=== PATIENT | female | born 1955 | race Caucasian/White ===

== ENCOUNTER → 2016-11-15 | Outpatient (CLI) | payer OTHER ==
[~2016-11-15] MED LIST: IOPAMIDOL (ISOVUE-300) 100 ML BTL IV ONE
== END ==
LOC: FIMAGING 10:02
PROVIDERS: ATTEND Family Medicine
DX: I77.810 Thoracic aortic ectasia (principal); I25.10 Atherosclerotic heart disease of native coronary artery without angina pectoris; K44.9 Diaphragmatic hernia without obstruction or gangrene; R91.8 Other nonspecific abnormal finding of lung field; F17.200 Nicotine dependence, unspecified, uncomplicated
CPT/HCPCS: Q9967

== ENCOUNTER → 2017-04-12 | Outpatient (CLI) | payer OTHER | LOC: FIMAGING 15:35 | DX: I82.502 Chronic embolism and thrombosis of unspecified deep veins of left lower extremity (principal) ==

== ENCOUNTER 2017-07-08 21:51 | Emergency (ER) | payer OTHER ==
[2017-07-08] MEDS ORDERED: IPRATROPIUM/ALBUTEROL 3 ML DEYVIAL IH ONE ×2 (22:07)
--- NOTE | 2017-07-08 22:17 | EDPHY ---
H & P Source: Patient, EMS Exam Limitations: Intoxication - Medical/Surgical History Hx Asthma: No Hx Chronic Respiratory Disease: No Hx Diabetes: No Hx Cardiac Disease: No Hx Renal Disease: No Hx Cirrhosis: No Hx Alcoholism: Yes Hx HIV/AIDS: No Hx Splenectomy or Spleen Trauma: No Other PMH: htn low thyroid,depression, - Social History Smoking Status: Current every day smoker Time Seen by Provider: 07/08/17 21:59 HPI/ROS: HPI The patient presents brought in by ambulance on a mental health hold for suicidal ideation. Apparently, she had drink 1 L of should not ups earlier in the evening. Her partner tried to take this away from her and she became upset. She then held a knife to her neck and said that she was going to kill herself. She now denies any suicidality and says this was actually fleeting. She does have a history of prior psychiatric hospitalizations. She denies any complaints current later though says she is feeling intoxicated. REVIEW OF SYSTEMS Constitutional: No fever, no chills. Eyes: No discharge. ENT: No sore throat. Cardiovascular: No chest pain, no palpitations. Respiratory: No cough, no shortness of breath. Gastrointestinal: No abdominal pain, no vomiting. Genitourinary: No hematuria. Musculoskeletal: No back pain. Skin: No rashes. Neurological: No headache. PMHx: COPD, not on any home oxygen, occasionally uses inhalers, history of DVT on Eliquis, currenly not on any anticoagulants except for a baby aspirin Soc Hx: Housed, alcohol use PHYSICAL General Appearance: Alert, no distress Eyes: Pupils equal and round no pallor or injection ENT, Mouth: Mucous membranes moist Respiratory: There are no retractions, lungs are clear to auscultation Cardiovascular: Regular rate and rhythm Gastrointestinal: Abdomen is soft and non-tender, no masses, bowel sounds normal Neurological: A&O, moves all extremities Skin: Warm and dry, no rashes Musculoskeletal: Neck is supple non tender Extremities: symmetrical, full range of motion Psychiatric: Patient is oriented X 3, there is no agitation (Riguzzi,Myrna) Constitutional: Initial Vital Signs Temperature (C) 36.6 C 07/08/17 22:45 Heart Rate 88 07/08/17 22:45 Respiratory Rate 16 07/08/17 22:45 Blood Pressure 126/93 H 07/08/17 22:45 O2 Sat (%) 77 L 07/08/17 22:45 O2 Delivery Mode Room Air O2 (L/minute) 2 Allergies/Adverse Reactions: No Known Allergies Allergy (Unverified 12/29/09 17:18) Home Medications: Medication Instructions Recorded Lisinopril 12/29/09 SYNTHROID 12/29/09 traZODone 07/20/16 Aspirin 07/08/17 Ativan 07/08/17 Ondansetron 07/08/17 Nitrofurantoin Macrobid [Macrobid] 100 mg PO BID #14 cap 07/09/17 Medical Decision Making ED Course/Re-evaluation: Re-evaluation by me at 7:03 a.m.. Patient is stable. She is resting comfortably without complaints. She is awaiting evaluation for suicide ideation 2:50 p.m.. Patient has been evaluated by mental health and felt to be appropriate for outpatient management. Now that she is sober the patient is no longer suicidal. has been contacted and will come to pick the patient up. (Vivek Chappell) Differential Diagnosis: 62-year-old female, brought in by ambulance, with past medical history of COPD, DVT, psychiatric admissions presents on an M1 hold for suicidality. This was in the setting of alcohol intoxication and she does still seem quite intoxicated. She now says that she is no longer feeling suicidal. On exam, she is notably hypoxic, she does have a history of COPD, lungs sound clear. Plan for basic laboratory testing including alcohol level and urine toxicology. I will add chest x-ray onto her evaluation given her hypoxia. We will do a trial of a DuoNeb to see if this improves her symptoms. The patient continued to be slightly hypoxic requiring supplemental oxygen in the emergency department. Because of this D-dimer was sent and was negative. I feel her hypoxia is likely related to underlying COPD. She is completely asymptomatic, thus I doubt any occult pneumonia or other serious pathology. Labs were checked and did reveal urinary tract infection, I have given her dose of Macrobid for this. She was monitored in the emergency department, repeat breathalyzer was 0.09. The mental health team will evaluate her. At approximately 7:00 a.m. the case was signed out to the oncoming provider Dr. Chappell pending psychiatric assessment. 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 Maker Medications Given: Discontinued Medications Acetaminophen (Tylenol) 650 mg PO EDNOW ONE Stop: 07/09/17 09:27 Last Admin: 07/09/17 09:28 Dose: Not Given Acetaminophen (Tylenol) 650 mg PO EDNOW ONE Stop: 07/09/17 09:29 Last Admin: 07/09/17 09:32 Dose: 650 mg Albuterol/Ipratropium (Duoneb) 3 ml IH EDNOW ONE Stop: 07/08/17 22:08 Last Admin: 07/08/17 22:27 Dose: 3 ml Famotidine (Pepcid) 20 mg PO EDNOW ONE Stop: 07/09/17 09:27 Last Admin: 07/09/17 09:33 Dose: 20 mg Nitrofurantoin Macrocrystals (Macrobid) 100 mg PO EDNOW ONE PRN Reason: Protocol Stop: 07/09/17 02:26 Last Admin: 07/09/17 02:33 Dose: 100 mg Departure - Departure Disposition: Home, Routine, Self-Care Clinical Impression: UTI (urinary tract infection) Alcoholic intoxication Qualifiers: Complication of substance-induced condition: with delirium Qualified Code(s): F10.921 - Alcohol use, unspecified with intoxication delirium COPD (chronic obstructive pulmonary disease) Qualifiers: COPD type: chronic bronchitis Chronic bronchitis type: unspecified Qualified Code(s): J42 - Unspecified chronic bronchitis Condition: Good Instructions: Alcohol Intoxication (ED) Additional Instructions: Please return to the emergency room if your feeling worse or unsafe in any way. Drink plenty of fluids and stay hydrated to help treat a urinary tract infection. We are giving you a prescription for antibiotics. Return for flank pain, fever, vomiting Follow up with treatment plan as outlined by mental health. Please drink alcohol responsibly. Referrals: [facility],. [Clinic] - As per Instructions Prescriptions: Nitrofurantoin Macrobid [Macrobid] 100 mg PO BID #14 cap
[2017-07-08 23:21] LABS: PLATELET COUNT 138 10^3/uL (150-400)
[2017-07-09] MEDS ORDERED: NITROFURANTOIN MACROBID 100 MG CAP PO ONE ×2 (02:25)
[2017-07-09 08:04] VITALS: RESP 16
[2017-07-09] MEDS ORDERED: FAMOTIDINE 20 MG TAB PO ONE ×2 (09:26)
[2017-07-09] MEDS ORDERED: ACETAMINOPHEN 500 MG TAB PO ONE ×2 (09:26)
[2017-07-09] MEDS ORDERED: ACETAMINOPHEN 325 MG TAB PO ONE ×2 (09:28)
[2017-07-09 14:59] VITALS: BP 166/78; PULSE 91; TEMP 98.1; O2SAT 90
== END 2017-07-09 15:22 | disposition home or self-care (01) ==
LOC: EDUNIT#
DX: F10.921 Alcohol use, unspecified with intoxication delirium (principal); J42 Unspecified chronic bronchitis; N39.0 Urinary tract infection, site not specified; F17.200 Nicotine dependence, unspecified, uncomplicated; I10 Essential (primary) hypertension; B96.20 Unspecified Escherichia coli [E. coli] as the cause of diseases classified elsewhere; Z79.82 Long term (current) use of aspirin
CPT/HCPCS: 80305; G0480

== ENCOUNTER 2018-04-24 | Emergency (ER) | payer OTHER | END 2018-04-24 23:08 | disposition home or self-care (01) | PROC: 09QKXZZ Repair Nasal Mucosa and Soft Tissue, External Approach (ICD-10-PCS; principal; 2018-04-24) ==

== ENCOUNTER 2018-07-10 09:38 | Inpatient (IN) | payer OTHER ==
[2018-07-10] MEDS ORDERED: methylPREDNISolone SOD SUCC 125 MG/2 ML VIAL IVP ONE (09:59)
[2018-07-10] MEDS ORDERED: IPRATROPIUM/ALBUTEROL 3 ML DEYVIAL IH ONE (09:59)
[2018-07-10] MEDS ORDERED: NS 1,000 ML IV ONE ×2 (09:59→10:32)
[2018-07-10] MEDS ORDERED: ONDANSETRON 4 MG/2 ML VIAL IVP ONE (10:01)
--- NOTE | 2018-07-10 10:05 | EDPHY ---
H & P Stated Complaint: cough/hypoxia x 5 days Time Seen by Provider: 07/10/18 09:50 HPI/ROS: CHIEF COMPLAINT: Cough, shortness of breath HISTORY OF PRESENT ILLNESS: 63-year-old female with COPD presents with cough and shortness of breath. Onset of a moist cough 4 days ago. Gradually increasing cough, productive of yellowish phlegm, associated with gradually increasing shortness of breath and vomiting. Difficulty walking up a flight of stairs d/t SOB. Unable to tolerate food in the past 2 days. Feels dizzy with standing. No fever. Ran out of her inhalers a few days ago. REVIEW OF SYSTEMS: complete 10 point ROS reviewed and is negative except for the noted elements in the HPI Source: Patient - Personal History Current Tetanus Diphtheria and Acellular Pertussis (TDAP): Yes - Medical/Surgical History Hx Asthma: No Hx Chronic Respiratory Disease: No Hx Diabetes: No Hx Cardiac Disease: No Hx Renal Disease: No Hx Cirrhosis: No Hx Alcoholism: Yes Hx HIV/AIDS: No Hx Splenectomy or Spleen Trauma: No Other PMH: htn, pneumonia, COPD, hypothyroidism,depression, - Social History Smoking Status: Current every day smoker Alcohol Use: Heavy Additional Social History: - Physical Exam Exam: General Appearance: Alert, pleasant Eyes: Pupils equal and round, no conjunctival pallor or injection ENT, Mouth: Mucous membranes slightly dry Neck: Normal inspection Respiratory: Normal respiratory rate, diffuse expiratory wheezing Cardiovascular: Regular rate and rhythm Gastrointestinal: Abdomen is soft and nontender Neurological: A&O, nonfocal exam Skin: Warm and dry, no rash Extremities: Nontender, no pedal edema Psychiatric: Mood and affect normal Constitutional: Initial Vital Signs Temperature (C) 36.6 C 07/10/18 09:40 Heart Rate 105 H 07/10/18 09:40 Respiratory Rate 22 H 07/10/18 09:40 Blood Pressure 138/81 H 07/10/18 09:40 O2 Sat (%) 97 07/10/18 09:40 O2 Delivery Mode Room Air O2 (L/minute) 2 Allergies/Adverse Reactions: No Known Allergies Allergy (Verified 07/10/18 09:39) Home Medications: Medication Instructions Recorded Levothyroxine [Synthroid 150 mcg 150 mcg PO DAILY06 12/29/09 (*)] Lisinopril [Zestril 20 mg (*)] 20 mg PO DAILY 12/29/09 traZODone [traZODONE 50MG (*)] 50 mg PO HS PRN 07/20/16 LORazepam [Ativan (*)] 0.5 mg PO DAILY PRN 07/08/17 Acetaminophen [Tylenol 325mg (*)] 325 mg PO Q6HRS PRN 07/10/18 Carboxymethylcellulose 1% [Refresh 1 drop EACHEYE DAILY PRN 07/10/18 Celluvisc (*)] Medical Decision Making - Diagnostics Imaging Results: Imaging Impressions Chest X-Ray 07/10/18 09:51 Impression: Possible air trapping. No pneumonia. Imaging: I viewed and interpreted images myself ED Course/Re-evaluation: This patient presents with cough and shortness of breath. Exam reveals hypoxia and bronchospasm. O2 2l NC applied, DuoNeb and Solu-Medrol 125 mg IV given. IV normal saline 1 L and Zofran 4 mg IV given for dehydration. Initial lactate is 3. Patient meets the criteria for severe sepsis. BP normal. IV fluids per the sepsis protocol initiated. Repeat lactate is 2.7. Chest x-ray is unremarkable. After the DuoNeb, oxygen saturation remains 88% on room air. Lungs have decreased wheezing, but still present. Good air exchange. Will treat this patient for presumed pneumonia with IV Levaquin per the severe sepsis protocol, given that she has COPD and is a heavy alcohol drinker. The hospitalist service was consulted for admission. Differential Diagnosis: includes though not limited to PE, pulm edema, acute bronchitis, PTX, empyema - Data Points Laboratory Results: Laboratory Results 07/10/18 10:17 07/10/18 10:17 07/10/18 07/10/18 07/10/18 11:02 10:17 10:17 WBC RBC Hgb Hct MCV MCH MCHC RDW Plt Count MPV Neut % (Auto) Lymph % (Auto) Luce % (Auto) Eos % (Auto) Baso % (Auto) Nucleat RBC Rel Count Absolute Neuts (auto) Absolute Lymphs (auto) Absolute Monos (auto) Absolute Eos (auto) Absolute Basos (auto) Absolute Nucleated RBC Immature Gran % Immature Gran # VBG Lactic Acid 2.7 mmol/L H mmol/L 3.0 mmol/L H mmol/L (0.7-2.1) (0.7-2.1) Sodium 131 mEq/L L mEq/L (135-145) Potassium 4.5 mEq/L mEq/L (3.3-5.0) Chloride 97 mEq/L mEq/L (97-110) Carbon Dioxide 23 mEq/l mEq/l (22-31) Anion Gap 11 mEq/L mEq/L (6-14) BUN 5 mg/dL L mg/dL (7-23) Creatinine 0.7 mg/dL mg/dL (0.6-1.0) Estimated GFR > 60 Glucose 101 mg/dL H mg/dL (70-100) Calcium 8.6 mg/dL mg/dL (8.5-10.4) 07/10/18 10:17 WBC 3.52 10^3/uL L 10^3/uL (3.80-9.50) RBC 4.30 10^6/uL 10^6/uL (4.18-5.33) Hgb 13.8 g/dL g/dL (12.6-16.3) Hct 40.0 % % (38.0-47.0) MCV 93.0 fL fL (81.5-99.8) MCH 32.1 pg pg (27.9-34.1) MCHC 34.5 g/dL g/dL (32.4-36.7) RDW 13.2 % % (11.5-15.2) Plt Count 100 10^3/uL L 10^3/uL (150-400) MPV 10.5 fL fL (8.7-11.7) Neut % (Auto) 69.5 % % (39.3-74.2) Lymph % (Auto) 19.3 % % (15.0-45.0) Luce % (Auto) 9.4 % % (4.5-13.0) Eos % (Auto) 0.6 % % (0.6-7.6) Baso % (Auto) 0.9 % % (0.3-1.7) Nucleat RBC Rel Count 0.0 % % (0.0-0.2) Absolute Neuts (auto) 2.45 10^3/uL 10^3/uL (1.70-6.50) Absolute Lymphs (auto) 0.68 10^3/uL L 10^3/uL (1.00-3.00) Absolute Monos (auto) 0.33 10^3/uL 10^3/uL (0.30-0.80) Absolute Eos (auto) 0.02 10^3/uL L 10^3/uL (0.03-0.40) Absolute Basos (auto) 0.03 10^3/uL 10^3/uL (0.02-0.10) Absolute Nucleated RBC 0.00 10^3/uL 10^3/uL (0-0.01) Immature Gran % 0.3 % % (0.0-1.1) Immature Gran # 0.01 10^3/uL 10^3/uL (0.00-0.10) VBG Lactic Acid Sodium Potassium Chloride Carbon Dioxide Anion Gap BUN Creatinine Estimated GFR Glucose Calcium Microbiology Results: MICROBIOLOGY 07/10/18 10:43 Nasal, Sinus - Swab Respiratory Panel (PCR) - Final No Organism Detected Medications Given: Albuterol/Ipratropium (Duoneb) 3 ml IH Q6HRS PRN PRN Reason: Short of Breath/Dyspnea Stop: 01/06/19 14:11 Last Admin: 07/10/18 16:05 Dose: 3 ml Azithromycin (Zithromax) 500 mg PO DAILY DIDI PRN Reason: Protocol Stop: 08/09/18 14:14 Last Admin: 07/10/18 15:16 Dose: 500 mg Chlordiazepoxide HCl (Librium) 10 mg PO TID [facility] Stop: 01/06/19 15:59 Last Admin: 07/10/18 15:17 Dose: 10 mg Nystatin (Mycostatin Oral Liquid) 500,000 unit PO QID DIDI PRN Reason: Protocol Stop: 08/09/18 15:59 Last Admin: 07/10/18 15:17 Dose: 500,000 unit Prednisone (Prednisone) 40 mg PO DAILY [facility] Stop: 07/15/18 14:14 Last Admin: 07/10/18 15:16 Dose: 40 mg Discontinued Medications Albuterol/Ipratropium (Duoneb) 3 ml IH EDNOW ONE Stop: 07/10/18 10:00 Last Admin: 07/10/18 10:42 Dose: 3 ml Sodium Chloride (Ns) 1,000 mls @ 0 mls/hr IV ONCE ONE; Wide Open PRN Reason: Protocol Stop: 07/10/18 10:00 Last Admin: 07/10/18 10:26 Dose: 1,000 mls Sodium Chloride (Ns) 1,000 mls @ 0 mls/hr IV ONCE ONE; Wide Open PRN Reason: Protocol Stop: 07/10/18 10:33 Last Admin: 07/10/18 10:55 Dose: 1,000 mls Levofloxacin/Dextrose (Levaquin 750 Mg (Premix)) 150 mls @ 100 mls/hr IV EDNOW ONE PRN Reason: Protocol Stop: 07/10/18 12:37 Last Admin: 07/10/18 11:20 Dose: 150 mls Sodium Chloride (Ns) 1,800 mls @ 3,600 mls/hr 30 ml/kg infuse over 30 min ( 1800 ml) IV EDNOW ONE PRN Reason: Protocol Stop: 07/10/18 11:37 Last Admin: 07/10/18 11:29 Dose: Not Given Methylprednisolone Sodium Succinate (Solu-Medrol) 125 mg IVP EDNOW ONE Stop: 07/10/18 10:00 Last Admin: 07/10/18 10:27 Dose: 125 mg Ondansetron HCl (Zofran) 4 mg IVP EDNOW ONE Stop: 07/10/18 10:02 Last Admin: 07/10/18 10:26 Dose: 4 mg Departure - Departure Disposition: [facility] Clinical Impression: Chronic obstructive pulmonary disease with acute exacerbation Pneumonia Qualifiers: Pneumonia type: due to unspecified organism Laterality: unspecified laterality Lung location: unspecified part of lung Qualified Code(s): J18.9 - Pneumonia, unspecified organism Condition: Fair
[2018-07-10 10:40] LABS: PLATELET COUNT 100 10^3/uL (150-400)
[2018-07-10] MEDS ORDERED: NS 1,800 ML IV ONE (11:08)
[2018-07-10] MEDS ORDERED: ONDANSETRON DISINTEGRATING 4 MG TAB PO PRN (12:20)
[2018-07-10] MEDS ORDERED: ONDANSETRON 4 MG/2 ML VIAL IVP PRN (12:20)
[2018-07-10] MEDS ORDERED: oxyCODONE IR 5 MG TAB PO PRN (14:12)
[2018-07-10] MEDS ORDERED: IPRATROPIUM/ALBUTEROL 3 ML DEYVIAL IH PRN (14:12)
--- NOTE | 2018-07-10 14:18 | HOSPPROG ---
Hospitalist Progress Note Assessment/Plan: 63 yo F w copd here w exacerbation. meets criteria for severe sepsis, but elevated lactate likely explained by poor hepatic clearance as opposed to tissue hypoperfusion 1. steroids, nebs, azithro 2. scheduled librium 3. exoressed us from pustule on cheek. follow 4. patient sen examined discussed w ADAL reyes. agree w plan as outlined Objective: Vital Signs Temp Pulse Resp BP Pulse Ox 36.6 C 98 18 129/81 H 93 07/10/18 13:15 07/10/18 13:15 07/10/18 13:15 07/10/18 13:15 07/10/18 13:15 ICD10 Worksheet Patient Problems: Problems Problem Status Onset Pneumonia Acute
[2018-07-10] MEDS ORDERED: LORazepam 0.5 MG TAB PO PRN (14:28)
[2018-07-10] MEDS ORDERED: traZODone 50 MG TAB PO PRN (14:28)
[2018-07-10] MEDS ORDERED: CARBOXYMETHYLCELLULOSE 1% 0.4 ML DROPERETTE EACHEYE PRN (14:28)
--- NOTE | 2018-07-10 14:28 | PDGENHP ---
History and Physical - Chief Complaint Cough - History of Present Illness 63 y/o female with history significant for COPD, 22-pack year, and alcohol use disorder presents with a 5-day productive cough and chest congestion. Reports clear to yellow phlegm. Has shortness of breath with exertion, especially using stairs. Endorses chills. Denies chest pains, nausea, fevers. Past Medical History/Surgical History: 1. Hypertension 2. Hypothyroidism 3. COPD 4. Alcohol use disorder (12 beers/day) 5. Anxiety 6. Colitis 7. DVT (LLE) History Information - Allergies/Home Medication List Allergies/Adverse Reactions: No Known Allergies Allergy (Verified 07/10/18 09:39) Home Medications: Levothyroxine [Synthroid 150 mcg (*)] 150 mcg PO DAILY06 12/29/09 [Last Taken ] Lisinopril [Zestril 20 mg (*)] 20 mg PO DAILY 12/29/09 [Last Taken 07/09/18] traZODone [traZODONE 50MG (*)] 50 mg PO HS PRN 07/20/16 [Last Taken 07/09/18] LORazepam [Ativan (*)] 0.5 mg PO DAILY PRN 07/08/17 [Last Taken 07/10/18] Acetaminophen [Tylenol 325mg (*)] 325 mg PO Q6HRS PRN 07/10/18 [Last Taken 07/09 21:00] Carboxymethylcellulose 1% [Refresh Celluvisc (*)] 1 drop EACHEYE DAILY PRN 07/10 [Last Taken Unknown] I have personally reviewed and updated: family history, medical history, social history, surgical history Past Medical History: See history in HPI - Surgical History Reports: no pertinent surgical hx - Family History Positive for: cancer, hypertension - Social History Smoking Status: Current every day smoker Tobacco Use: Cigarettes (1/2 pack/day) Alcohol Use: Heavy (12 beers/day) Drug Use: None Additional social history: , Myles, at bedside with pt Review of Systems Review of Systems: ROS: 10pt was reviewed & negative except for what was stated in HPI & below Constitutional: Reports: chills, recent illness EENMT: Reports: sore throat (Feels hoarse) Cardiac: Reports: no symptoms Respiratory: Reports: cough, shortness of breath Gastrointestinal: Reports: no symptoms Genitourinary: Reports: no symptoms Muscolosketal: Reports: no symptoms Skin: Reports: lesions (right buccal abscess) Neurological: Reports: anxiety, headache Hematologic/Lymphatic: Reports: no symptoms Immunologic/Allergy: Reports: no symptoms Physical Exam Physical Exam: Lab data and imaging reviewed WBC: 3.52 Plt: 100 Lactic Acid: 3.0, 2.7 Na: 131 Blood culture pending Respiratory panel pending CXR: No pneumonia. Possible air trapping. Temp Pulse Resp BP Pulse Ox 36.6 C 98 18 129/81 H 93 07/10/18 13:15 07/10/18 13:15 07/10/18 13:15 07/10/18 13:15 07/10/18 13:15 O2 (L/minute) 2 Constitutional: no apparent distress, appears nourished, not in pain Eyes: PERRL, anicteric sclera, EOMI Ears, Nose, Mouth, Throat: hearing normal, ears appear normal, oral thrush Cardiovascular: regular rate and rhythym, no murmur, rub, or gallop, No edema Peripheral Pulses: 2+: dorsalis-pedis (R) (Radial 2+), dorsalis-pedis (L) ( Radial 2+ ) Respiratory: reduced air movement (Bilateral upper lobes) Gastrointestinal: normoactive bowel sounds, soft, non-tender abdomen, no palpable masses Genitourinary: no bladder fullness, no bladder tenderness Skin: erythema, fluctuance, other (Right facial abscess; purulent drainage) Musculoskeletal: full muscle strength, no muscle tenderness, normal joint ROM, no joint effusions Neurologic: AAOx3, sensation intact bilaterally, CN II-XII Intact Psychiatric: interacting appropriately, not anxious, not encephalopathic, thought process linear Lymph, Heme, Immunologic: no cervical LAD, no supraclavicular LAD Lab Data & Imaging Review 07/10/18 10:17 07/10/18 10:17 WBC 3.52 10^3/uL (3.80-9.50) L 07/10/18 10:17 RBC 4.30 10^6/uL (4.18-5.33) 07/10/18 10:17 Hgb 13.8 g/dL (12.6-16.3) 07/10/18 10:17 Hct 40.0 % (38.0-47.0) 07/10/18 10:17 MCV 93.0 fL (81.5-99.8) 07/10/18 10:17 MCH 32.1 pg (27.9-34.1) 07/10/18 10:17 MCHC 34.5 g/dL (32.4-36.7) 07/10/18 10:17 RDW 13.2 % (11.5-15.2) 07/10/18 10:17 Plt Count 100 10^3/uL (150-400) L 07/10/18 10:17 MPV 10.5 fL (8.7-11.7) 07/10/18 10:17 Neut % (Auto) 69.5 % (39.3-74.2) 07/10/18 10:17 Lymph % (Auto) 19.3 % (15.0-45.0) 07/10/18 10:17 Drew % (Auto) 9.4 % (4.5-13.0) 07/10/18 10:17 Eos % (Auto) 0.6 % (0.6-7.6) 07/10/18 10:17 Baso % (Auto) 0.9 % (0.3-1.7) 07/10/18 10:17 Nucleat RBC Rel Count 0.0 % (0.0-0.2) 07/10/18 10:17 Absolute Neuts (auto) 2.45 10^3/uL (1.70-6.50) 07/10/18 10:17 Absolute Lymphs (auto) 0.68 10^3/uL (1.00-3.00) L 07/10/18 10:17 Absolute Monos (auto) 0.33 10^3/uL (0.30-0.80) 07/10/18 10:17 Absolute Eos (auto) 0.02 10^3/uL (0.03-0.40) L 07/10/18 10:17 Absolute Basos (auto) 0.03 10^3/uL (0.02-0.10) 07/10/18 10:17 Absolute Nucleated RBC 0.00 10^3/uL (0-0.01) 07/10/18 10:17 Immature Gran % 0.3 % (0.0-1.1) 07/10/18 10:17 Immature Gran # 0.01 10^3/uL (0.00-0.10) 07/10/18 10:17 VBG Lactic Acid 2.7 mmol/L (0.7-2.1) H 07/10/18 11:02 Sodium 131 mEq/L (135-145) L 07/10/18 10:17 Potassium 4.5 mEq/L (3.3-5.0) 07/10/18 10:17 Chloride 97 mEq/L (97-110) 07/10/18 10:17 Carbon Dioxide 23 mEq/l (22-31) 07/10/18 10:17 Anion Gap 11 mEq/L (6-14) 07/10/18 10:17 BUN 5 mg/dL (7-23) L 07/10/18 10:17 Creatinine 0.7 mg/dL (0.6-1.0) 07/10/18 10:17 Estimated GFR > 60 07/10/18 10:17 Glucose 101 mg/dL (70-100) H 07/10/18 10:17 Calcium 8.6 mg/dL (8.5-10.4) 07/10/18 10:17 Visualized and Interpreted Chest x-ray results: Yes Chest X-Ray results: no infiltrate, other (Possible air trapping) Assessment & Plan Assessment: 63 y/o female with history significant for COPD, 22-pack year, and alcohol use disorder presents with 5-day productive cough, possible URI or acute exacerbation of COPD. Plan: 1. URI versus COPD exacerbation -Azithromycin PO -Prednisone PO -Duo-nebs -Pulmonary hygiene -Room air challenge tomorrow morning 2. Severe Sepsis: the patient meets at least two criteria of severe sepsis ( tachy, elevated lactate levels, leukocytopenia). However, she is hemodynamically stable with blood pressure last reading being 126/74 and not hypotensive. I do not consider her to be severe septic. 3. Facial Abscess: right side buccal showed a moderate, fluctuance abscess. Purulent drainage. Oral thrush. -Treat subsequent pain -Continue to monitor; if febrile, increase in pain, erythemic - will consider PO antibiotics -Treat thrush with Nystatin, swish and swallow 4. Alcohol use disorder: pt is open to counseling and steps for alcohol cessation -CIWA scale -Librium TID -Behavioral health - cessation information 5, 6, 7. Hypothyroidism, HTN, Anxiety: Continue to monitor and continue use of home medications Diet: Regular Code: Full VTE ppx: SCDs Dispo: Admit to inpatient
[2018-07-10] MEDS: AZITHROMYCIN 250 MG TAB PO SCH (15:16)
[2018-07-10] MEDS: predniSONE 20 MG TAB PO SCH (15:16)
[2018-07-10] MEDS: NYSTATIN SUSP 500000 UNIT/5 ML UD LIQ PO SCH ×2 (15:17→21:27)
--- NOTE | 2018-07-10 15:22 | PDMN ---
Medical Necessity Medical necessity: MCG: M100 COPD A-2 days: COPD exacerbation RA sats 88% 93 % on 2 L., productive cough, chest congestion, SOB with exertion, chills, X 5 days, sepsis with tachycardia, elevated lactate , leukocytopenia, PMHx 22 pack year smoker, ETOH abuse 12 beers/day, HTN, hypothyroidism, COPD, anxiety, colitis, dvt. anticipate > 2 MN ongoing med nec care, eval and further tx.
[2018-07-10] MEDS: ZOLPIDEM TARTRATE 5 MG TAB PO PRN (21:27)
[2018-07-10] MEDS: ACETAMINOPHEN 325 MG TAB PO PRN (21:29)
[2018-07-11] MEDS: ZOLPIDEM TARTRATE 5 MG TAB PO PRN (00:15)
[2018-07-11] MEDS: NYSTATIN SUSP 500000 UNIT/5 ML UD LIQ PO SCH ×3 (05:35→17:31)
[2018-07-11] MEDS: ACETAMINOPHEN 325 MG TAB PO PRN (05:45)
[2018-07-11] MEDS ORDERED: LEVOTHYROXINE 150 MCG TAB PO SCH (06:00)
[2018-07-11] MEDS: predniSONE 20 MG TAB PO SCH (08:53)
[2018-07-11] MEDS ORDERED: LISINOPRIL 20 MG TAB PO SCH (09:00)
[2018-07-11] MEDS ORDERED: AZITHROMYCIN 250 MG TAB PO SCH ×3 (09:45→10:00)
[2018-07-11] MEDS: AZITHROMYCIN 250 MG TAB PO SCH (11:03)
--- NOTE | 2018-07-11 11:04 | ASMTCMCOM ---
CM Note CM Note Notes: Pt is a 63 y/o female admitted for pneumonia and copd exacerbation. Pt has a hx of anxiety and etoh use. CM met w/ pt and alonso for dispo planning. The longest pt has been sober was 20 years and 10 years. Pt reports that journaling and keeping busy helps her stay sober. Pt plans on getting sober again. Pt reports that she has been to treatment in the past. CM provided pt w/ educational material for anxiety. CAGE completed. No needs anticipated at this time. CM available for d/c needs. Plan: Independent Date Signed: 07/11/2018 11:03 AM Electronically Signed By:ROSA Fuentes
--- NOTE | 2018-07-11 11:04 | ASMTCAGE ---
CAGE Do you feel you ought to Answers: Yes cut down on your drinking or drug use? Do people annoy you by Answers: Yes criticizing your drinking or drug use? Do you feel guilty about Answers: Yes your drinking or drug use? Do you drink or use drugs Answers: Yes first thing in the morning (Eye Bender Machine)? Date Signed: 07/11/2018 11:03 AM Electronically Signed By:ROSA Fuentes
--- NOTE | 2018-07-11 14:21 | HOSPPROG ---
Hospitalist Progress Note Assessment/Plan: 63 y/o female with extensive smoking history and suspected COPD, etoh abuse here with mild copd exacerbation. #AECOPD, mild - PO pred, azithromycin, duonebs PRN - Ambulate to determine if needs home O2 #Elevated lactate: No significant drop in bicarb but this could be chronic from resp issues. - Suspect poor hepatic clearance/etoh, not consistent with hypoperfusion/ related to resp distress - Not improving much but down-trending #EtOH use disorder - On librium TID, plan to dc on taper as she is interested in quitting and has h/o withdrawal #Facial pustule - Pus expressed, no indication for antibiotics at present #Hypothyroid: home meds #HTN: home meds #Anxiety: home meds Dispo: Remain inpatient. Pending room air challenge and respiratory stability this afternoon, could go home. Subjective: Breathing better than on admission. Feels well. Wants to go home. Ready to quit drinking and smoking. Objective: Vital Signs Temp Pulse Resp BP Pulse Ox 36.8 C 88 16 130/81 H 95 07/11/18 11:18 07/11/18 12:34 07/11/18 11:18 07/11/18 11:18 07/11/18 12:34 Laboratory Results 07/11/18 12:47 07/10/18 07/11/18 07/12/18 05:59 05:59 05:59 Intake Total 2900 Balance 2900 - Physical Exam Constitutional: no apparent distress, not in pain Eyes: PERRL, anicteric sclera, EOMI Ears, Nose, Mouth, Throat: moist mucous membranes, hearing normal, ears appear normal, no oral mucosal ulcers Cardiovascular: regular rate and rhythym, no murmur, rub, or gallop, No JVD, No edema Respiratory: no respiratory distress, reduced air movement, No expiratory wheeze Gastrointestinal: normoactive bowel sounds, soft, non-tender abdomen, no palpable masses Genitourinary: no bladder fullness, no bladder tenderness, no renal bruits Skin: no rashes or abrasions, no fluctuance, no induration Musculoskeletal: full muscle strength, no muscle tenderness, normal joint ROM Neurologic: AAOx3, sensation intact bilaterally Psychiatric: interacting appropriately, not anxious, not encephalopathic, thought process linear ICD10 Worksheet Patient Problems: Problems Problem Status Onset Chronic obstructive pulmonary disease with acute exacerbation Acute Pneumonia Acute
--- NOTE | 2018-07-11 15:59 | PDDCSUM ---
Discharge Summary Discharge Summary: Date of Admission: 07/10/2018 Date of Discharge: 07/11/2018 Studies: 1. CXR - hyperinflated, no pneumonia or effusion 2. Respiratory viral panel - negative Discharge Diagnoses: 1. Acute exacerbation of COPD with ongoing tobacco use 2. Acute hypoxemic respiratory insufficiency, resolved 3. Elevated lactate 4. EtOH use disorder 5. Facial pustule 6. Hyponatremia 7. Thrombocytopenia 8. Hypothyroid 9. HTN 10. Anxiety Brief Hospital Course by Problem #AECOPD, mild: Improved quicker than anticipated and only required one midnight. Unclear trigger, RVP and CXR negative. Discharged to complete course of prednisone and doxycycline. Not on inhalers at home. Dc'd with albuterol inhaler. #AHRI: Required 2L on admit. Ambulating on room air with O2 sats >88%, not dc'd with supplemental O2. #Elevated lactate: Suspect poor hepatic clearance. Not consistent with hypoperfusion. Down-trending but did not fully clear by discharge. #EtOH use: Drinking 8 beers/day. H/o withdrawal in the past but no e/o here. Very interested in quitting. Dc'd with librium taper for next week. #Facial pustule: Purulent material expressed on arrival. No e/o surrounding cellulitis. On doxycycline as above. #Hyponatremia: Likely poor solute. Improving slightly but still low. #Thrombocytopenia: No e/o bleeding. She has been low in the past. Likely etoh bone marrow suppression. Medications: Please refer to EMR for complete list. Changes this admission include additions of prednisone 40mg PO qd x4 more days, doxycycline 100mg bid x4 more days, albuterol inhaler PRN, librium 20mg TID x4 days then 10mg TID x4 days. Follow Up Plan: 1. Complete steroids and antibiotics 2. Complete librium taper, continue to work on etoh cessation 3. Work on tobacco cessation 4. Needs adequate treatment (ie. anti-muscarinic, LABA/ICS) for her emphysema Physical Exam: Vitals reviewed, afebrile. Alert and oriented, no focal deficit, RRR without murmur, lungs with decreased but improving breath sounds throughout and without wheezing and no distress, abd soft and nt, no LE edema, scab on right cheek without underlying induration or surrounding fluctuance.
[2018-07-11 16:15] VITALS: BP 133/54
== END 2018-07-11 16:55 | disposition home or self-care (01) | DRG 191 ==
LOC: F3E 13:00
PROVIDERS: ADMIT Internal Medicine; ATTEND Internal Medicine
DX: J44.1 Chronic obstructive pulmonary disease with (acute) exacerbation (principal); E87.1 Hypo-osmolality and hyponatremia; R06.89 Other abnormalities of breathing; F10.10 Alcohol abuse, uncomplicated; L08.9 Local infection of the skin and subcutaneous tissue, unspecified; D69.6 Thrombocytopenia, unspecified; E03.9 Hypothyroidism, unspecified; I10 Essential (primary) hypertension; F41.9 Anxiety disorder, unspecified; Z72.0 Tobacco use; Z86.718 Personal history of other venous thrombosis and embolism
CPT/HCPCS: 96365; J1956; J2405; J2930; J7512